=== PATIENT | male | born 1955 | race American Indian/Alaskan Native ===

== ENCOUNTER 2016-10-22 11:04 | Inpatient (IN) | payer MEDICAID ==
[2016-10-22] MEDS ORDERED: ATIVAN PO ONE (11:55)
[2016-10-22] MEDS ORDERED: ATIVAN ONE ×2 (12:01→22:24)
[2016-10-22 12:42] LABS: Basophils % (Auto) 0.8 % (0.0-1.8); Eosinophils % (Auto) 0.7 % (0.0-4.3); Hematocrit 52.3 % (35.5-45.6); Hemoglobin 17.2 gm/dl (11.8-15.2); Mean Corpuscular HGB Conc 33 % (32-34); Mean Corpuscular Hemoglobin 29 pg (28-32); Mean Corpuscular Volume 89 fl (84-94); Platelet Count 228 K/mm3 (140-440); Red Cell Distribution Width 13.7 % (13.2-15.2); White Blood Count 9.7 K/mm3 (4.5-11.0)
[2016-10-22 12:55] LABS: Anion Gap 21 mmol/L; Blood Urea Nitrogen 9 mg/dL (9-20); Calcium 9.4 mg/dL (8.4-10.2); Carbon Dioxide 22 mmol/L (22-30); Chloride 100.6 mmol/L (98-107); Glucose 105 mg/dL (75-100); Potassium 4.6 mmol/L (3.6-5.0); Sodium 139 mmol/L (137-145)
[2016-10-22] MEDS ORDERED: ATIVAN IV ONE (13:13)
[2016-10-22] MEDS ORDERED: ZOFRAN IV ONE (13:13)
[2016-10-22] MEDS ORDERED: MAGNESIUM SULFATE 2GM/50ML 2 GM/50 ML BAG IV ONE (13:30)
[2016-10-22 13:41] LABS: INR 1.01 (0.87-1.13); Partial Thromboplastin Time 30.3 Sec. (24.2-36.6)
--- NOTE | 2016-10-22 13:43 | XRay Report ---
AP CHEST: HISTORY: Hypertension AP view of the chest demonstrates a normal mediastinal and cardiac contour with clear lungs and normal bony and soft tissue structures. IMPRESSION: Unremarkable AP chest.
[2016-10-22 13:50] LABS: Creatine Kinase MB 11.6 ng/mL (0.0-4.0)
[2016-10-22 13:51] LABS: Creatine Kinase 103 units/L (55-170)
--- NOTE | 2016-10-22 15:51 | Emergency Department Report ---
ED General Adult HPI - General Chief complaint: Psych Stated complaint: SEIZURE Time Seen by Provider: 10/22/16 12:52 Source: patient Mode of arrival: Wheelchair Limitations: No Limitations - History of Present Illness Initial comments: The patient states that the principal reason that he presented was a seizure this am. He states that he mildly scuffled his knees but suffered no other injury. They also stated that he was suicidal at triage. The patient did not speak to me much about his suicidal ideation but apparently did have a lot of thoughts recently. He also expressed them to Dr. Lassiter as well. Patient tells me he was just released from the Psychiatric unit. He states he is dependent on Ativan taking at least 4 tablets a day. When he was released from the hospital a day and a half ago he no longer had any Ativan. He presents to the emergency department quite anxious and tachycardic with apparent benzo diazepam withdrawal seizure and syndrome. In addition, the patient complains of a " cramp in his anterior chest and back". He has a history of previous heart attack. He states that he does not take Plavix or aspirin. He takes a statin only. He hasn't seen a finishing tunnel operator in several years. -: Sudden Location: chest, back Radiation: non-radiation Quality: other Consistency: intermittent Improves with: none Worsens with: none Associated Symptoms: denies other symptoms Treatments Prior to Arrival: none - Related Data Allergies Allergy/AdvReac Type Severity Reaction Status Date / Time iodine Allergy Itching Verified 10/22/16 11:25 Shellfish Allergy Swelling Uncoded 10/22/16 11:25 ED Review of Systems ROS: Stated complaint: SEIZURE Other details as noted in HPI Constitutional: denies: chills, fever Eyes: denies: eye pain, eye discharge, vision change ENT: denies: ear pain, throat pain Respiratory: denies: cough, shortness of breath, wheezing Cardiovascular: chest pain. denies: palpitations Endocrine: no symptoms reported Gastrointestinal: denies: abdominal pain, nausea, diarrhea Genitourinary: denies: urgency, dysuria Musculoskeletal: denies: back pain, joint swelling, arthralgia Skin: denies: rash, lesions Neurological: denies: headache, weakness, paresthesias Psychiatric: depression, suicidal thoughts. denies: anxiety Hematological/Lymphatic: denies: easy bleeding, easy bruising ED Past Medical Hx - Past Medical History Previous Medical History?: Yes Hx Heart Attack/AMI: Yes Hx Psychiatric Treatment: Yes - Social History Substance Use Type: Prescribed (minutes previous opiate dependency and current benzodiazepine dependency) ED Physical Exam - General Limitations: No Limitations General appearance: alert, anxious - Head Head exam: Present: atraumatic, normocephalic - Eye Eye exam: Present: normal appearance. Absent: scleral icterus - ENT ENT exam: Present: normal exam, mucous membranes moist - Neck Neck exam: Present: normal inspection. Absent: tenderness, meningismus - Respiratory Respiratory exam: Present: normal lung sounds bilaterally. Absent: respiratory distress - Cardiovascular Cardiovascular Exam: Present: regular rate, normal rhythm. Absent: systolic murmur, diastolic murmur, rubs, gallop - GI/Abdominal GI/Abdominal exam: Present: soft, normal bowel sounds. Absent: distended, tenderness, guarding, rebound, rigid, organomegaly, mass - Rectal Rectal exam: Present: deferred - Extremities Exam Extremities exam: Present: normal inspection - Back Exam Back exam: Present: normal inspection - Neurological Exam Neurological exam: Present: alert, oriented X3, CN II-XII intact. Absent: motor sensory deficit - Psychiatric Psychiatric exam: Present: normal affect, normal mood - Skin Skin exam: Present: warm, dry, intact, other (erythema and superficial abrasion of the knees). Absent: rash ED Course Vital Signs 10/22/16 11:25 Temperature 97.4 F L Pulse Rate 109 H Respiratory 20 Rate Blood Pressure 128/93 O2 Sat by Pulse 99 Oximetry - Reevaluation(s) Reevaluation #1: The patient was given Ativan and his tachycardia resolved. His severe anxiety resolved. He was given a small dose of morphine for his chest pain. He was given aspirin. He was admitted by Dr. Lassiter to the hospitalist service. I am entering a cardiology consultation for chest pain and history of coronary artery disease with a quite abnormal EKG. I do not believe that he is having any active ischemia at this time however. In addition a 1013 form was executed. 10/22/16 15:57 ED Medical Decision Making - Lab Data Result diagrams: 10/22/16 12:27 10/22/16 12:27 Laboratory Results - last 24 hr 10/22/16 10/22/16 10/22/16 12:27 12:27 12:27 WBC 9.7 RBC 5.90 H Hgb 17.2 H Hct 52.3 H MCV 89 MCH 29 MCHC 33 RDW 13.7 Plt Count 228 Lymph % (Auto) 23.0 [place] % (Auto) 7.9 H Eos % (Auto) 0.7 Baso % (Auto) 0.8 Lymph # 2.2 [place] # 0.8 Eos # 0.1 Baso # 0.1 Seg Neutrophils % 67.6 Seg Neutrophils # 6.5 PT INR APTT Sodium 139 Potassium 4.6 Chloride 100.6 Carbon Dioxide 22 Anion Gap 21 BUN 9 Creatinine 0.9 Estimated GFR > 60 BUN/Creatinine Ratio 10.00 Glucose 105 H Calcium 9.4 Total Creatine Kinase CK-MB (CK-2) CK-MB (CK-2) Rel Index Troponin T < 0.010 NT-Pro-B Natriuret Pep TSH Free T4 Plasma/Serum Alcohol < 0.01 10/22/16 10/22/16 10/22/16 13:00 13:00 13:00 WBC RBC Hgb Hct MCV MCH MCHC RDW Plt Count Lymph % (Auto) [place] % (Auto) Eos % (Auto) Baso % (Auto) Lymph # [place] # Eos # Baso # Seg Neutrophils % Seg Neutrophils # PT 13.2 INR 1.01 APTT 30.3 Sodium Potassium Chloride Carbon Dioxide Anion Gap BUN Creatinine Estimated GFR BUN/Creatinine Ratio Glucose Calcium Total Creatine Kinase 103 CK-MB (CK-2) 11.6 H CK-MB (CK-2) Rel Index 11.2 H Troponin T < 0.010 NT-Pro-B Natriuret Pep 2837 H TSH 0.792 Free T4 1.09 Plasma/Serum Alcohol - EKG Data -: EKG Interpreted by Me EKG shows normal: sinus rhythm Rate: tachycardia - EKG Data Interpretation: other (old inferior wall HI. Diffuse T-wave inversions consistent with ischemia) - Radiology Data interpreted by me: X-ray shows no acute process. Critical care attestation.: If time is entered above; I have spent that time in minutes in the direct care of this critically ill patient, excluding procedure time. ED Disposition Clinical Impression: Abnormal EKG, Suicidal thoughts, Psychiatric illness Benzodiazepine withdrawal Qualifiers: Complication of substance-induced condition: with unspecified complication Qualified Code(s): F13.239 - Sedative, hypnotic or anxiolytic dependence with withdrawal, unspecified Drug withdrawal seizure Qualifiers: Complication of substance-induced condition: uncomplicated Qualified Code(s): F19.230 - Other psychoactive substance dependence with withdrawal, uncomplicated Chest pain Qualifiers: Chest pain type: unspecified Qualified Code(s): R07.9 - Chest pain, unspecified Disposition: OP ADMITTED IP TO THIS HOSP Is pt being admited?: Yes Does the pt Need Aspirin: Yes Condition: Stable Instructions: Chest Pain (ED) Referrals: PRIMARY CARE,MD [Primary Care Provider] - 3-5 Days Time of Disposition: 16:01
[2016-10-22] MEDS ORDERED: BABY ASPIRIN PO ONE (16:01)
--- NOTE | 2016-10-22 16:32 | Consultation ---
History of Present Illness Consult date: 10/22/16 Requesting physician: MINGO MEJIA Consult reason: chest pain History of present illness: The patient is a 61 year old male with a history of OK (2013), hypertension, hyperlipidemia, anxiety, depression who presented following a seizure at home this morning. He states that he is withdrawing from Ativan and is also reporting suicidal ideations. He also reports several episodes of chest pain this morning that he describes as a "cramp." He states the pain lasts for several seconds and resolves on it own. No shortness of breath, palpitations, nausea, vomiting or diaphoresis. No exacerbating or relieving factors. Currently he is chest pain free. Troponin negative. BNP 2837. He states that he had an OK in 2013 and was treated at [facility]. He reports a cardiac cath but does not think he has any stents. Past History Past Medical History: acute OK, hypertension, hyperlipidemia, other (anxiety, depression ) Past Surgical History: total hip replacement Social history: smoking (smokes 15 cigarettes/day), prescription drug abuse ( benzos). denies: alcohol abuse Family history: CAD (father had an OK at age 49) Medications and Allergies Allergies Allergy/AdvReac Type Severity Reaction Status Date / Time iodine Allergy Itching Verified 10/22/16 11:25 Shellfish Allergy Swelling Uncoded 10/22/16 11:25 Review of Systems Constitutional: no fever, no chills Ears, nose, mouth and throat: no nasal congestion, no nasal discharge, no sinus pressure Cardiovascular: chest pain, no palpitations, no shortness of breath, no dyspnea on exertion Respiratory: no cough, no congestion, no wheezing Gastrointestinal: no abdominal pain, no nausea, no vomiting, no diarrhea Genitourinary Male: no dysuria, no hematuria Musculoskeletal: no neck stiffness, no neck pain, no myalgias Integumentary: no rash, no pruritis Neurological: seizures, no parathesias, no numbness, no tingling, no headaches Psychiatric: anxiety, suicidal ideation, depression Endocrine: no cold intolerance, no heat intolerance Hematologic/Lymphatic: no easy bruising, no easy bleeding Allergic/Immunologic: no urticaria, no wheezing Physical Examination Vital Signs Temp Pulse Resp BP Pulse Ox 97.4 F L 109 H 20 128/93 99 10/22/16 11:25 10/22/16 11:25 10/22/16 11:25 10/22/16 11:25 10/22/16 11:25 General appearance: no acute distress HEENT: Positive: Normocephaly, Mucus Membranes Moist Neck: Positive: neck supple, trachea midline Cardiac: Positive: Reg Rate and Rhythm, S1/S2 Lungs: Positive: clear to auscultation Neuro: Positive: Grossly Intact Abdomen: Positive: Soft, Active Bowel Sounds. Negative: Tender Skin: Positive: Clear. Negative: Rash Extremities: Present: normal. Absent: edema Results 10/22/16 12:27 10/22/16 12:27 Cardiac Enzymes 10/22/16 Range/Units 13:00 CK-MB (CK-2) 11.6 H (0.0-4.0) ng/mL Coagulation 10/22/16 Range/Units 13:00 PT 13.2 (12.2-14.9) Sec. INR 1.01 (0.87-1.13) APTT 30.3 (24.2-36.6) Sec. CBC 10/22/16 Range/Units 12:27 WBC 9.7 (4.5-11.0) K/mm3 RBC 5.90 H (3.65-5.03) M/mm3 Hgb 17.2 H (11.8-15.2) gm/dl Hct 52.3 H (35.5-45.6) % Plt Count 228 (140-440) K/mm3 Lymph # 2.2 (1.2-5.4) K/mm3 [place] # 0.8 (0.0-0.8) K/mm3 Eos # 0.1 (0.0-0.4) K/mm3 Baso # 0.1 (0.0-0.1) K/mm3 Comprehensive Metabolic Panel 10/22/16 Range/Units 12:27 Sodium 139 (137-145) mmol/L Potassium 4.6 (3.6-5.0) mmol/L Chloride 100.6 (98-107) mmol/L Carbon Dioxide 22 (22-30) mmol/L BUN 9 (9-20) mg/dL Creatinine 0.9 (0.8-1.5) mg/dL Glucose 105 H (75-100) mg/dL Calcium 9.4 (8.4-10.2) mg/dL - Imaging and Cardiology Echo: pending EKG: image reviewed EKG interpretations - Telemetry EKG Rhythm: Sinus Rhythm - EKG Sinus rhythms and dysrhythmias: sinus rhythm Chamber hypertrophy or enlargement: left ventricular hypertro Repolarization changes or abnormalities: ST or T wave suggestive of ischemia Assessment and Plan Atypical chest pain-->resolved 1st troponin negative, will trend obtain echo Lexiscan thallium stress test in am Benzo withdrawal Hx. of OK pt. reports OK/cardiac cath in 2013 at [facility]-->awaiting records Hypertension Hyperlipidemia Tobacco abuse Will obtain additional sets of cardiac enzymes. Obtain echo. Stress test in am. Await records from [facility]. The patient has been seen in conjunction with Dr. Gómez who agrees with the assessment and plan of care. Thank you Dr. Mejia for allowing us to participate in the cared of this patient.
--- NOTE | 2016-10-22 16:58 | Admit Criteria Form ---
Admission Criteria Documentation: ALCOHOL AND PSYCHOACTIVE SUBSTANCE WITHDRAWAL Clinical Indications for Inpatient Care (Place ' X' for any and all applicable criteria): Ongoing inpatient care may be indicated for substance withdrawal[B][C] with ANY ONE of the following(1)(2)(3)(4)(21): [ ]I. Delirium due to alcohol or sedative[D] withdrawal is present. [ ]II. Marked signs of withdrawal are present as indicated by ANY ONE of the following(15)(22)(23) [ ]a) Heart rate greater than 120 beats per minute is present. [ ]b) Severe vomiting is present (eg, precludes maintenance of oral hydration). [ ]c) Grossly visible tremor is present. [ ]d) Profuse perspiration is present. [ ]e) Temperature greater than 101 degrees F (38.3 degrees C) is present. [ ]f) Other signs of severe withdrawal are present (eg, Altered mental status ) [ ]g) Severe withdrawal identified by standardized assessment score[A] [X]III. Signs of withdrawal that require continued inpatient treatment as indicated by ANY ONE of the following(15)(22)(23): [ ]a) Inadequate response to pharmacotherapy (eg, benzodiazepines) [X]b) Outpatient or lower level of care is not feasible or appropriate (eg, unavailable or inappropriate to patient condition or treatment history). [X]IV. Withdrawal signs with high-risk indicator are present as manifested by ALL of the following[A](15)(22)(23) [X]a) Signs of withdrawal are present as indicated by ANY ONE of the following: [X]i. Tachycardia is present. [ ]ii. Nausea or vomiting is present. [ ]iii. Tremor is present. [ ]iv. Increased perspiration is present. [ ]v. Other signs of withdrawal are present. [ ]vi. Withdrawal identified by standardized assessment score [A] [X]b) Elevated risk due to historical or comorbid factor is present as indicated by ANY ONE of the following: [ ]i. History of delirium due to withdrawal is present. [X]ii. History of seizures due to withdrawal is present.[E] [ ]iii. Intrinsic seizure disorder (epilepsy) is present. [ ]iv. Patient is . [ ]v. Other significant medical history (eg, severe cardiac disease) is present, which is assessed to be at risk for destabilization due to withdrawal. [ ]V. Serious electrolyte abnormalities (eg, hyponatremia, hypokalemia, hypophosphatemia) requiring correction performable only in inpatient setting(6)(25) [ ]. Severe hypoglycemia requiring glucose infusions performable only in inpatient setting(6) [ ]VII. Drug toxicity or instability, such as Altered mental status, respiratory depression, or arrhythmias, that requires inpatient care [X]VIII. Danger judged unmanageable at lower level of care because of ANY ONE of the following [X]a) Danger to self [ ]b) Danger to others [ ]c) Grave disability (eg, inability to perform self-care necessary at lower level of care) The original [facility] Care Guidelines content created by [facility] has been revised. The portions of the content which have been revised are identified through the use of italic text or in bold. [facility] Guidelines has neither reviewed nor approved the modified material. All other unmodified content is copyright [facility] Care Guidelines. Please see references footnoted in the original [facility] CareGuidelines edition 2016 Admission Criteria Met: Yes
--- NOTE | 2016-10-22 17:26 | Cat Scan Report ---
FINAL REPORT EXAM: CT HEAD/BRAIN WO CON HISTORY: seizure TECHNIQUE: Noncontrast serial axial images from skull base to vertex. PRIORS: None. FINDINGS: There is mild atrophy. There is no mass effect or midline shift. There are no abnormal intra or extra-axial fluid collections. Lateral ventricles are within normal limits for size and configuration. Basilar cisterns are patent. No acute intracranial hemorrhage is identified. Visualized paranasal sinuses and mastoid air cells are well aerated. No acute osseous abnormality is identified. IMPRESSION: 1. No abnormal mass or acute intracranial hemorrhage is identified.
--- NOTE | 2016-10-22 20:39 | History and Physical Report ---
History of Present Illness Date of examination: 10/22/16 Date of admission: 10/22/16 Past History Past Medical History: acute AR, hypertension, hyperlipidemia, other (anxiety, depression ) Past Surgical History: total hip replacement Social history: smoking (smokes 15 cigarettes/day), prescription drug abuse ( benzos). denies: alcohol abuse Family history: CAD (father had an AR at age 49) Medications and Allergies Allergies Allergy/AdvReac Type Severity Reaction Status Date / Time iodine Allergy Itching Verified 10/22/16 11:25 Shellfish Allergy Swelling Uncoded 10/22/16 11:25 Review of Systems All systems: negative Exam - Constitutional Vitals: Temp Pulse Resp BP Pulse Ox 97.4 F L 109 H 20 128/93 99 10/22/16 11:25 10/22/16 11:25 10/22/16 11:25 10/22/16 11:25 10/22/16 11:25 General appearance: Present: no acute distress, well-nourished - EENT Eyes: Present: PERRL ENT: hearing intact, clear oral mucosa - Neck Neck: Present: supple, normal ROM - Respiratory Respiratory effort: normal Respiratory: bilateral: CTA - Cardiovascular Heart Sounds: Present: S1 & S2. Absent: rub, click - Extremities Extremities: pulses symmetrical, No edema Peripheral Pulses: within normal limits - Abdominal General gastrointestinal: Present: soft, non-tender, non-distended, normal bowel sounds Male genitourinary: Present: normal - Integumentary Integumentary: Present: clear, warm, dry - Musculoskeletal Musculoskeletal: gait normal, strength equal bilaterally - Psychiatric Psychiatric: appropriate mood/affect, intact judgment & insight - Neurologic Neurologic: CNII-XII intact, moves all extremities Results - Labs CBC & Chem 7: 10/22/16 12:27 10/22/16 12:27 Labs: Abnormal lab results 10/22/16 10/22/16 10/22/16 Range/Units 12:27 12:27 13:00 RBC 5.90 H (3.65-5.03) M/mm3 Hgb 17.2 H (11.8-15.2) gm/dl Hct 52.3 H (35.5-45.6) % [place] % (Auto) 7.9 H (0.0-7.3) % Glucose 105 H (75-100) mg/dL CK-MB (CK-2) 11.6 H (0.0-4.0) ng/mL CK-MB (CK-2) Rel Index 11.2 H (0-4) NT-Pro-B Natriuret Pep 2837 H (0-900) pg/mL
[2016-10-22] MEDS ORDERED: MILK OF MAGNESIA PO PRN (20:41)
[2016-10-22] MEDS ORDERED: ZOFRAN IV PRN (20:41)
[2016-10-22] MEDS ORDERED: DULCOLAX PR PRN (20:41)
[2016-10-22] MEDS ORDERED: ATIVAN IV PRN (20:47)
[2016-10-22] MEDS ORDERED: HALDOL IV PRN (20:47)
[2016-10-22 21:00] LABS: Urine Drugs of Abuse Note Disclamer
[2016-10-22 21:06] LABS: Bilirubin,Urine NEG (Negative); Blood,Urine NEG (Negative); Ketones,Urine NEG (Negative); Leukocyte Esterase,Urine NEG (Negative); Mucus,Urine 2+ /HPF; Nitrite,Urine NEG (Negative); Urobilinogen,Urine < 2.0 mg/dL (<2.0)
[2016-10-22 22:16] LABS: Albumin 4.6 g/dL (3.9-5); Magnesium 2.9 mg/dL (1.7-2.3); Phosphorous 3.4 mg/dL (2.5-4.5)
[2016-10-22] MEDS: ATIVAN IV PRN (22:24)
[2016-10-22] MEDS ORDERED: TORADOL ONE (22:25)
[2016-10-22] MEDS ORDERED: BABY ASPIRIN ONE (22:25)
[2016-10-22] MEDS ORDERED: D5/0.45NS 1,000 ML IV ONE (22:28)
[2016-10-22] MEDS: TORADOL IV SCH (22:50)
[2016-10-22] MEDS: D5/0.45NS 1,000 ML IV SCH (23:08)
[2016-10-23] MEDS: TORADOL IV SCH ×3 (00:30→11:00)
[2016-10-23] MEDS: ATIVAN PO PRN ×5 (05:38→21:58)
[2016-10-23 05:48] LABS: Basophils % (Auto) 1.1 % (0.0-1.8); Eosinophils % (Auto) 3.3 % (0.0-4.3); Hematocrit 45.4 % (35.5-45.6); Hemoglobin 14.7 gm/dl (11.8-15.2); Mean Corpuscular HGB Conc 32 % (32-34); Mean Corpuscular Hemoglobin 29 pg (28-32); Mean Corpuscular Volume 89 fl (84-94); Platelet Count 155 K/mm3 (140-440); Red Cell Distribution Width 13.9 % (13.2-15.2); White Blood Count 6.5 K/mm3 (4.5-11.0)
[2016-10-23 06:08] LABS: Alanine Aminotransferase 27 units/L (7-56); Albumin 3.6 g/dL (3.9-5); Albumin/Globulin Ratio 1.4 %; Alkaline Phosphatase 105 units/L (35-129); Anion Gap 16 mmol/L; BUN/Creatinine Ratio 17.27; Bilirubin,Total 0.2 mg/dL (0.1-1.2); Blood Urea Nitrogen 19 mg/dL (9-20); Calcium 8.8 mg/dL (8.4-10.2); Carbon Dioxide 28 mmol/L (22-30); Chloride 102.9 mmol/L (98-107); Glucose 88 mg/dL (75-100); Potassium 5.2 mmol/L (3.6-5.0); Sodium 142 mmol/L (137-145); Total Protein 6.1 g/dL (6.3-8.2)
[2016-10-23] MEDS ORDERED: LEXISCAN IV ONE ×2 (07:59→08:14)
--- NOTE | 2016-10-23 10:37 | Progress Note ---
Assessment and Plan Atypical chest pain-->resolved trop neg x 2 stress thallium this am--> tds, but no sig ischemia or infract, low normal lv fxn Benzo withdrawal Hx. of IN pt. reports IN/cardiac cath in 2013 at [facility]-->awaiting records Hypertension Hyperlipidemia Tobacco abuse stable cv status, asx echo staff not available today (may be done as outpt) cont asa consider statin tx upon dc Subjective Date of service: 10/23/16 Interval history: no complaints no cp/sob/palp/dizziness Objective Vital Signs Temp Pulse Pulse Resp BP BP BP 10/23/16 09:40 81 106/63 10/23/16 09:22 71 105/65 10/23/16 05:50 98.5 F 73 20 90/57 10/23/16 01:31 97.5 F L 66 20 99/58 10/23/16 00:00 75 10/22/16 23:55 98.9 F 81 14 104/62 10/22/16 23:20 18 10/22/16 22:50 18 Pulse Ox 10/23/16 09:40 10/23/16 09:22 10/23/16 05:50 97 10/23/16 01:31 97 10/23/16 00:00 10/22/16 23:55 96 10/22/16 23:20 10/22/16 22:50 - Physical Examination HEENT: Positive: Normocephaly, Mucus Membranes Moist Neck: Positive: neck supple, trachea midline Neuro: Positive: Grossly Intact Abdomen: Positive: Soft, Active Bowel Sounds. Negative: Tender Skin: Positive: Clear. Negative: Rash Extremities: Present: normal. Absent: edema - Labs and Meds Cardiac Enzymes 10/23/16 Range/Units 04:52 AST 24 (5-40) units/L CBC 10/23/16 Range/Units 04:52 WBC 6.5 (4.5-11.0) K/mm3 RBC 5.10 H (3.65-5.03) M/mm3 Hgb 14.7 (11.8-15.2) gm/dl Hct 45.4 D (35.5-45.6) % Plt Count 155 (140-440) K/mm3 Lymph # 2.2 (1.2-5.4) K/mm3 [place] # 0.7 (0.0-0.8) K/mm3 Eos # 0.2 (0.0-0.4) K/mm3 Baso # 0.1 (0.0-0.1) K/mm3 Comprehensive Metabolic Panel 10/22/16 10/23/16 Range/Units 21:17 04:52 Sodium 142 (137-145) mmol/L Potassium 5.2 H (3.6-5.0) mmol/L Chloride 102.9 (98-107) mmol/L Carbon Dioxide 28 (22-30) mmol/L BUN 19 (9-20) mg/dL Creatinine 1.1 (0.8-1.5) mg/dL Glucose 88 (75-100) mg/dL Calcium 8.8 (8.4-10.2) mg/dL AST 24 (5-40) units/L ALT 27 (7-56) units/L Alkaline Phosphatase 105 (35-129) units/L Total Protein 6.1 L (6.3-8.2) g/dL Albumin 4.6 3.6 L (3.9-5) g/dL - Imaging and Cardiology EKG: image reviewed Echo: pending - EKG Sinus rhythms and dysrhythmias: sinus rhythm Chamber hypertrophy or enlargement: left ventricular hypertro Repolarization changes or abnormalities: ST or T wave suggestive of ischemia
[2016-10-23] MEDS: LOVENOX SUB-Q SCH (10:57)
--- NOTE | 2016-10-23 11:09 | Treadmill Report ---
NUCLEAR PERFUSION SCAN REFERRING PHYSICIAN: Hospitalist service. PROTOCOL: The patient was brought to the stress lab in a postabsorptive state, given 10 mCi of technetium 99m. Shortly thereafter, the patient underwent rest imaging. The patient underwent Lexiscan stress test per standard protocol. At peak stress, the patient was given 26 mCi of technetium 99m. Shortly thereafter, the patient underwent stress imaging. Raw imaging reveals mild GI artifact. No significant motion artifact. SPECT imaging examined carefully in the horizontal long axis, vertical long axis, and short axis views. There is normal homogenous uptake of radioisotope in all reported segments. No evidence of significant fixed or reversible perfusion defects suggestive of prior infarction or ischemia. Gated wall motion reveals low normal systolic performance, calculated ejection fraction of 50%. No TID. CONCLUSIONS: 1. Normal myocardial perfusion scan without evidence of active ischemia or prior infarction. 2. Low normal left ventricular systolic performance with an estimated ejection fraction of 50%. No transient ischemic dilatation or segmental wall motion abnormalities. 3. Lexiscan reported separately. JOB# [id number] PORSHA/SOM
--- NOTE | 2016-10-23 11:47 | Progress Note ---
Assessment and Plan Assessment and plan: Atypical chest pain. Resolved. Stress thallium was found to be negative. Echocardiogram pending. Cardiology following. Benzo withdrawal. Continue withdrawal precautions. Withdrawal seizure. Seizure precautions. Suicidal ideation. Psychiatry consultation. Hx. of DC. Pt. reports DC/cardiac cath in 2013 at [facility]-->awaiting records Hypertension. Continue antihypertensive medications. Hyperlipidemia. Continue statins. Tobacco abuse. Patient will be counseled on tobacco cessation. History Interval history: 61-year-old male with history of DC in 2013, hypertension, hyperlipidemia, anxiety and depression presented to the emergency department following a seizure at that occurred yesterday morning. Patient reportedly is withdrawing from Ativan and also having suicidal ideations. Hospitalist Physical - Constitutional Vitals: Temp Pulse Resp BP Pulse Ox 97.6 F 74 18 107/68 98 10/23/16 10:45 10/23/16 10:45 10/23/16 11:27 10/23/16 10:45 10/23/16 10:45 General appearance: Present: no acute distress, well-nourished - EENT Eyes: Present: PERRL, EOM intact ENT: hearing intact, clear oral mucosa, dentition normal - Neck Neck: Present: supple, normal ROM - Respiratory Respiratory effort: normal Respiratory: bilateral: CTA - Cardiovascular Rhythm: regular Heart Sounds: Present: S1 & S2. Absent: gallop, rub - Extremities Extremities: no ischemia, No edema, Full ROM - Abdominal General gastrointestinal: soft, non-tender, non-distended, normal bowel sounds - Integumentary Integumentary: Present: clear, warm, dry - Neurologic Neurologic: CNII-XII intact, moves all extremities Results - Labs CBC & Chem 7: 10/23/16 04:52 10/23/16 04:52 Labs: Laboratory Last Values WBC 6.5 K/mm3 (4.5-11.0) 10/23/16 04:52 RBC 5.10 M/mm3 (3.65-5.03) H 10/23/16 04:52 Hgb 14.7 gm/dl (11.8-15.2) 10/23/16 04:52 Hct 45.4 % (35.5-45.6) D 10/23/16 04:52 MCV 89 fl (84-94) 10/23/16 04:52 MCH 29 pg (28-32) 10/23/16 04:52 MCHC 32 % (32-34) 10/23/16 04:52 RDW 13.9 % (13.2-15.2) 10/23/16 04:52 Plt Count 155 K/mm3 (140-440) 10/23/16 04:52 Lymph % (Auto) 33.6 % (13.4-35.0) 10/23/16 04:52 [place] % (Auto) 11.4 % (0.0-7.3) H 10/23/16 04:52 Eos % (Auto) 3.3 % (0.0-4.3) 10/23/16 04:52 Baso % (Auto) 1.1 % (0.0-1.8) 10/23/16 04:52 Lymph # 2.2 K/mm3 (1.2-5.4) 10/23/16 04:52 [place] # 0.7 K/mm3 (0.0-0.8) 10/23/16 04:52 Eos # 0.2 K/mm3 (0.0-0.4) 10/23/16 04:52 Baso # 0.1 K/mm3 (0.0-0.1) 10/23/16 04:52 Seg Neutrophils % 50.6 % (40.0-70.0) 10/23/16 04:52 Seg Neutrophils # 3.3 K/mm3 (1.8-7.7) 10/23/16 04:52 PT 13.2 Sec. (12.2-14.9) 10/22/16 13:00 INR 1.01 (0.87-1.13) 10/22/16 13:00 APTT 30.3 Sec. (24.2-36.6) 10/22/16 13:00 Sodium 142 mmol/L (137-145) 10/23/16 04:52 Potassium 5.2 mmol/L (3.6-5.0) H 10/23/16 04:52 Chloride 102.9 mmol/L (98-107) 10/23/16 04:52 Carbon Dioxide 28 mmol/L (22-30) 10/23/16 04:52 Anion Gap 16 mmol/L 10/23/16 04:52 BUN 19 mg/dL (9-20) 10/23/16 04:52 Creatinine 1.1 mg/dL (0.8-1.5) 10/23/16 04:52 Estimated GFR > 60 ml/min 10/23/16 04:52 BUN/Creatinine Ratio 17.27 % 10/23/16 04:52 Glucose 88 mg/dL (75-100) 10/23/16 04:52 Calcium 8.8 mg/dL (8.4-10.2) 10/23/16 04:52 Phosphorus 3.4 mg/dL (2.5-4.5) 10/22/16 21:17 Magnesium 2.9 mg/dL (1.7-2.3) H 10/22/16 21:17 Total Bilirubin 0.2 mg/dL (0.1-1.2) 10/23/16 04:52 AST 24 units/L (5-40) 10/23/16 04:52 ALT 27 units/L (7-56) 10/23/16 04:52 Alkaline Phosphatase 105 units/L (35-129) 10/23/16 04:52 Ammonia 45.0 umol/L (25-60) 10/22/16 21:17 Total Creatine Kinase 103 units/L (55-170) 10/22/16 13:00 CK-MB (CK-2) 11.6 ng/mL (0.0-4.0) H 10/22/16 13:00 CK-MB (CK-2) Rel Index 11.2 (0-4) H 10/22/16 13:00 Troponin T < 0.010 ng/mL (0.00-0.029) 10/22/16 18:09 NT-Pro-B Natriuret Pep 2837 pg/mL (0-900) H 10/22/16 13:00 Total Protein 6.1 g/dL (6.3-8.2) L 10/23/16 04:52 Albumin 3.6 g/dL (3.9-5) L 10/23/16 04:52 Albumin/Globulin Ratio 1.4 % 10/23/16 04:52 Amylase 111 units/L (27-131) 10/22/16 21:17 TSH 0.792 mlU/mL (0.270-4.200) 10/22/16 13:00 Free T4 1.09 ng/dL (0.76-1.46) 10/22/16 13:00 Urine Color Yellow (Yellow) 10/22/16 Unknown Urine Turbidity Clear (Clear) 10/22/16 Unknown Urine pH 5.0 (5.0-7.0) 10/22/16 Unknown Ur Specific [place] 1.021 (1.003-1.030) 10/22/16 Unknown Urine Protein 30 mg/dl mg/dL (Negative) 10/22/16 Unknown Urine Glucose (UA) Neg mg/dL (Negative) 10/22/16 Unknown Urine Ketones Neg mg/dL (Negative) 10/22/16 Unknown Urine Blood Neg (Negative) 10/22/16 Unknown Urine Nitrite Neg (Negative) 10/22/16 Unknown Urine Bilirubin Neg (Negative) 10/22/16 Unknown Urine Urobilinogen < 2.0 mg/dL (<2.0) 10/22/16 Unknown Ur Leukocyte Esterase Neg (Negative) 10/22/16 Unknown Urine WBC (Auto) 1.0 /HPF (0.0-6.0) 10/22/16 Unknown Urine RBC (Auto) 26.0 /HPF (0.0-6.0) 10/22/16 Unknown Calcium Oxalate Crystal Few 10/22/16 Unknown Urine Mucus 2+ /HPF 10/22/16 Unknown Urine Opiates Screen Presumptive negative 10/22/16 11:30 Urine Methadone Screen Presumptive positive 10/22/16 11:30 Ur Barbiturates Screen Presumptive negative 10/22/16 11:30 Ur Phencyclidine Scrn Presumptive negative 10/22/16 11:30 Ur Amphetamines Screen Presumptive negative 10/22/16 11:30 U Benzodiazepines Scrn Presumptive negative 10/22/16 11:30 Urine Cocaine Screen Presumptive negative 10/22/16 11:30 U Marijuana (THC) Screen Presumptive negative 10/22/16 11:30 Drugs of Abuse Note Disclamer 10/22/16 11:30 Plasma/Serum Alcohol < 0.01 gm% (0-0.07) 10/22/16 12:27
[2016-10-23] MEDS: ASPIRIN PO SCH (14:50)
[2016-10-23] MEDS: TYLENOL PO PRN (15:23)
[2016-10-23] MEDS: D5/0.45NS 1,000 ML IV SCH (19:22)
[2016-10-23] MEDS: REMERON PO SCH (21:58)
[2016-10-24] MEDS: ATIVAN PO PRN ×4 (06:18→21:48)
[2016-10-24] MEDS: TYLENOL PO PRN ×2 (09:03→23:16)
[2016-10-24] MEDS: LOVENOX SUB-Q SCH (09:04)
[2016-10-24] MEDS: ASPIRIN PO SCH (09:10)
--- NOTE | 2016-10-24 11:58 | Progress Note ---
Assessment and Plan Assessment and plan: Atypical chest pain. Resolved. Stress thallium was found to be negative. Echocardiogram pending. Cardiology following. Benzo withdrawal. Continue withdrawal precautions. Withdrawal seizure. Seizure precautions. Suicidal ideation. Psychiatry consultation. Hx. of [place]. Pt. reports [place]/cardiac cath in 2013 at [facility]-->awaiting records Hypertension. Continue antihypertensive medications. Hyperlipidemia. Continue statins. Tobacco abuse. Patient will be counseled on tobacco cessation. Hyperkalemia. Kayexalate 1. History Interval history: 61-year-old male with history of [place] in 2013, hypertension, hyperlipidemia, anxiety and depression presented to the emergency department following a seizure at that occurred yesterday morning. Patient reportedly is withdrawing from Ativan and also having suicidal ideations. Hospitalist Physical - Constitutional Vitals: Temp Pulse Resp BP Pulse Ox 97.8 F 88 18 112/74 98 10/24/16 04:15 10/24/16 04:15 10/24/16 09:11 10/24/16 04:15 10/24/16 04:15 General appearance: Present: no acute distress, well-nourished - EENT Eyes: Present: PERRL, EOM intact ENT: hearing intact, clear oral mucosa, dentition normal - Neck Neck: Present: supple, normal ROM - Respiratory Respiratory effort: normal Respiratory: bilateral: CTA - Cardiovascular Rhythm: regular Heart Sounds: Present: S1 & S2. Absent: gallop, rub - Extremities Extremities: no ischemia, No edema, Full ROM - Abdominal General gastrointestinal: soft, non-tender, non-distended, normal bowel sounds - Integumentary Integumentary: Present: clear, warm, dry - Neurologic Neurologic: CNII-XII intact, moves all extremities Results - Labs CBC & Chem 7: 10/23/16 04:52 10/23/16 04:52 Labs: Laboratory Last Values WBC 6.5 K/mm3 (4.5-11.0) 10/23/16 04:52 RBC 5.10 M/mm3 (3.65-5.03) H 10/23/16 04:52 Hgb 14.7 gm/dl (11.8-15.2) 10/23/16 04:52 Hct 45.4 % (35.5-45.6) D 10/23/16 04:52 MCV 89 fl (84-94) 10/23/16 04:52 MCH 29 pg (28-32) 10/23/16 04:52 MCHC 32 % (32-34) 10/23/16 04:52 RDW 13.9 % (13.2-15.2) 10/23/16 04:52 Plt Count 155 K/mm3 (140-440) 10/23/16 04:52 Lymph % (Auto) 33.6 % (13.4-35.0) 10/23/16 04:52 [place] % (Auto) 11.4 % (0.0-7.3) H 10/23/16 04:52 Eos % (Auto) 3.3 % (0.0-4.3) 10/23/16 04:52 Baso % (Auto) 1.1 % (0.0-1.8) 10/23/16 04:52 Lymph # 2.2 K/mm3 (1.2-5.4) 10/23/16 04:52 [place] # 0.7 K/mm3 (0.0-0.8) 10/23/16 04:52 Eos # 0.2 K/mm3 (0.0-0.4) 10/23/16 04:52 Baso # 0.1 K/mm3 (0.0-0.1) 10/23/16 04:52 Seg Neutrophils % 50.6 % (40.0-70.0) 10/23/16 04:52 Seg Neutrophils # 3.3 K/mm3 (1.8-7.7) 10/23/16 04:52 PT 13.2 Sec. (12.2-14.9) 10/22/16 13:00 INR 1.01 (0.87-1.13) 10/22/16 13:00 APTT 30.3 Sec. (24.2-36.6) 10/22/16 13:00 Sodium 142 mmol/L (137-145) 10/23/16 04:52 Potassium 5.2 mmol/L (3.6-5.0) H 10/23/16 04:52 Chloride 102.9 mmol/L (98-107) 10/23/16 04:52 Carbon Dioxide 28 mmol/L (22-30) 10/23/16 04:52 Anion Gap 16 mmol/L 10/23/16 04:52 BUN 19 mg/dL (9-20) 10/23/16 04:52 Creatinine 1.1 mg/dL (0.8-1.5) 10/23/16 04:52 Estimated GFR > 60 ml/min 10/23/16 04:52 BUN/Creatinine Ratio 17.27 % 10/23/16 04:52 Glucose 88 mg/dL (75-100) 10/23/16 04:52 Calcium 8.8 mg/dL (8.4-10.2) 10/23/16 04:52 Phosphorus 3.4 mg/dL (2.5-4.5) 10/22/16 21:17 Magnesium 2.9 mg/dL (1.7-2.3) H 10/22/16 21:17 Total Bilirubin 0.2 mg/dL (0.1-1.2) 10/23/16 04:52 AST 24 units/L (5-40) 10/23/16 04:52 ALT 27 units/L (7-56) 10/23/16 04:52 Alkaline Phosphatase 105 units/L (35-129) 10/23/16 04:52 Ammonia 45.0 umol/L (25-60) 10/22/16 21:17 Total Creatine Kinase 103 units/L (55-170) 10/22/16 13:00 CK-MB (CK-2) 11.6 ng/mL (0.0-4.0) H 10/22/16 13:00 CK-MB (CK-2) Rel Index 11.2 (0-4) H 10/22/16 13:00 Troponin T < 0.010 ng/mL (0.00-0.029) 10/22/16 18:09 NT-Pro-B Natriuret Pep 2837 pg/mL (0-900) H 10/22/16 13:00 Total Protein 6.1 g/dL (6.3-8.2) L 10/23/16 04:52 Albumin 3.6 g/dL (3.9-5) L 10/23/16 04:52 Albumin/Globulin Ratio 1.4 % 10/23/16 04:52 Amylase 111 units/L (27-131) 10/22/16 21:17 TSH 0.792 mlU/mL (0.270-4.200) 10/22/16 13:00 Free T4 1.09 ng/dL (0.76-1.46) 10/22/16 13:00 Urine Color Yellow (Yellow) 10/22/16 Unknown Urine Turbidity Clear (Clear) 10/22/16 Unknown Urine pH 5.0 (5.0-7.0) 10/22/16 Unknown Ur Specific [place] 1.021 (1.003-1.030) 10/22/16 Unknown Urine Protein 30 mg/dl mg/dL (Negative) 10/22/16 Unknown Urine Glucose (UA) Neg mg/dL (Negative) 10/22/16 Unknown Urine Ketones Neg mg/dL (Negative) 10/22/16 Unknown Urine Blood Neg (Negative) 10/22/16 Unknown Urine Nitrite Neg (Negative) 10/22/16 Unknown Urine Bilirubin Neg (Negative) 10/22/16 Unknown Urine Urobilinogen < 2.0 mg/dL (<2.0) 10/22/16 Unknown Ur Leukocyte Esterase Neg (Negative) 10/22/16 Unknown Urine WBC (Auto) 1.0 /HPF (0.0-6.0) 10/22/16 Unknown Urine RBC (Auto) 26.0 /HPF (0.0-6.0) 10/22/16 Unknown Calcium Oxalate Crystal Few 10/22/16 Unknown Urine Mucus 2+ /HPF 10/22/16 Unknown Urine Opiates Screen Presumptive negative 10/22/16 11:30 Urine Methadone Screen Presumptive positive 10/22/16 11:30 Ur Barbiturates Screen Presumptive negative 10/22/16 11:30 Ur Phencyclidine Scrn Presumptive negative 10/22/16 11:30 Ur Amphetamines Screen Presumptive negative 10/22/16 11:30 U Benzodiazepines Scrn Presumptive negative 10/22/16 11:30 Urine Cocaine Screen Presumptive negative 10/22/16 11:30 U Marijuana (THC) Screen Presumptive negative 10/22/16 11:30 Drugs of Abuse Note Disclamer 10/22/16 11:30 Plasma/Serum Alcohol < 0.01 gm% (0-0.07) 10/22/16 12:27
[2016-10-24] MEDS ORDERED: PNEUMOVAX 23 IM ONE (12:00)
--- NOTE | 2016-10-24 12:03 | Discharge Summary ---
Providers - Providers Date of Admission: 10/22/16 20:41 Date of discharge: 10/24/16 Attending physician: NATE ALEXANDER 10/22/16 20:49 Consult to Mental Health [CONS] Routine Reason For Exam: Benzo dependency+ Suicidal ideation Place consult to:: Mental health Notified:: Miriam SOLOMON Phone number called:: [phone] Was contact made?: Yes If yes, spoke with:: Kristina Time called:: 09:21 Primary care physician: DESIGN ARCHITECT Hospitalization Reason for admission: SI and atypical CP Condition: Stable Hospital course: 61-year-old male with history of [place] in 2013, hypertension, hyperlipidemia, anxiety and depression presented to the emergency department following a seizure that occurred prior to admission. Patient reportedly was withdrawing from Ativan with presumably a withdrawal seizure. Pt. also having suicidal ideations and atypical chest pain. Cardiology saw the patient in consultation and perform a stress thallium that showed no significant ischemia or infarct with low normal LV function. Patient was to undergo echocardiogram staff not available and will be done as an outpatient. Recommendations are to continue aspirin and statins at discharge. Mental health assessment recommends inpatient psych facility. Dedicated discharged time 35 minutes. Disposition: DC/TX ANOTHER TYPE HEALTHCARE - Discharge Diagnoses (1) Benzodiazepine withdrawal Status: Acute Qualifiers: Complication of substance-induced condition: with unspecified complication Qualified Code(s): F13.239 - Sedative, hypnotic or anxiolytic dependence with withdrawal, unspecified (2) Chest pain Status: Acute Qualifiers: Chest pain type: unspecified Qualified Code(s): R07.9 - Chest pain, unspecified (3) Drug withdrawal seizure Status: Acute Qualifiers: Complication of substance-induced condition: uncomplicated Qualified Code(s ): F19.230 - Other psychoactive substance dependence with withdrawal, uncomplicated (4) Suicidal thoughts Status: Acute Core Measure Documentation - Palliative Care Palliative Care/ Comfort Measures: Not Applicable - Core Measures Any of the following diagnoses?: none Exam - Constitutional Vitals: Temp Pulse Resp BP Pulse Ox 97.8 F 88 18 112/74 98 10/24/16 04:15 10/24/16 04:15 10/24/16 09:11 10/24/16 04:15 10/24/16 04:15 General appearance: Present: no acute distress, well-nourished - EENT Eyes: Present: PERRL ENT: hearing intact, clear oral mucosa - Neck Neck: Present: supple, normal ROM - Respiratory Respiratory effort: normal Respiratory: bilateral: CTA - Cardiovascular Heart Sounds: Present: S1 & S2. Absent: rub, click - Extremities Extremities: pulses symmetrical, No edema Peripheral Pulses: within normal limits - Abdominal General gastrointestinal: Present: soft, non-tender, non-distended, normal bowel sounds Male genitourinary: Present: normal - Integumentary Integumentary: Present: clear, warm, dry - Musculoskeletal Musculoskeletal: gait normal, strength equal bilaterally - Psychiatric Psychiatric: appropriate mood/affect, intact judgment & insight - Neurologic Neurologic: CNII-XII intact, moves all extremities Plan Activity: advance as tolerated Weight Bearing Status: Full Weight Bearing Diet: regular Follow up with: PRIMARY CAREMD [Primary Care Provider] - 3-5 Days GRANT COTTON MD [Staff Physician] - 7 Days
[2016-10-24] MEDS ORDERED: KIONEX PO ONE (12:06)
[2016-10-24] MEDS: ATIVAN IV PRN (16:21)
[2016-10-24] MEDS: REMERON PO SCH (21:47)
[2016-10-25] MEDS: ATIVAN IV PRN ×3 (01:04→10:07)
[2016-10-25] MEDS: LOVENOX SUB-Q SCH (10:07)
[2016-10-25] MEDS: ASPIRIN PO SCH (10:07)
[2016-10-25] MEDS: ATIVAN PO PRN ×3 (13:07→21:36)
--- NOTE | 2016-10-25 13:53 | Progress Note ---
Assessment and Plan Stable cardiac status. He may be discharged from a cardiac standpoint. - Patient Problems (1) Atypical chest pain Current Visit: Yes Status: Resolved (2) Hypertension Current Visit: Yes Status: Chronic Qualifiers: Hypertension type: essential hypertension Qualified Code(s): I10 - Essential (primary) hypertension (3) Drug withdrawal seizure Current Visit: Yes Status: Acute Qualifiers: Complication of substance-induced condition: uncomplicated Qualified Code(s ): F19.230 - Other psychoactive substance dependence with withdrawal, uncomplicated Subjective Date of service: 10/25/16 Principal diagnosis: Atypical chest pain Interval history: No chest pain. Objective Vital Signs Temp Pulse Pulse Resp BP Pulse Ox 10/25/16 11:31 97.3 F L 89 20 127/76 99 10/25/16 10:00 78 10/25/16 07:25 97.6 F 82 20 142/81 99 10/25/16 05:26 97.6 F 76 20 111/63 98 10/25/16 01:12 98.0 F 100 H 20 114/68 98 10/24/16 21:52 97.5 F L 80 20 111/78 98 10/24/16 21:06 82 10/24/16 16:30 98.3 F 75 20 121/82 - Physical Examination General: No Apparent Distress HEENT: Positive: EOMI, Normocephaly, Mucus Membranes Moist Neck: Positive: neck supple, trachea midline Cardiac: Positive: Reg Rate and Rhythm, S1/S2 Lungs: Positive: clear to auscultation Neuro: Positive: Grossly Intact Abdomen: Positive: Soft, Active Bowel Sounds. Negative: Tender Skin: Positive: Clear. Negative: Rash Musculoskeletal: Normal Range of Motion Extremities: Present: normal. Absent: edema - Imaging and Cardiology EKG: image reviewed Echo: pending - Telemetry EKG Rhythm: Sinus Rhythm - EKG Sinus rhythms and dysrhythmias: sinus rhythm Chamber hypertrophy or enlargement: left ventricular hypertro Repolarization changes or abnormalities: ST or T wave suggestive of ischemia
[2016-10-25] MEDS: TYLENOL PO PRN (15:35)
--- NOTE | 2016-10-25 19:53 | Echocardiography Report ---
REASON FOR STUDY: Chest pain. INTERPRETATION: Technically limited study. The aortic root and proximal ascending aorta are not visualized. The left atrium appears normal in size. The right atrium appears normal in size. The mitral valve is not adequately visualized. However, there is trace to mild mitral regurgitation. The tricuspid valve is not adequately visualized. However, it appears to function normally. The aortic valve is not adequately visualized. The pulmonic valve is not adequately visualized. The left ventricular cavity appears normal in size with borderline normal global systolic function. Although the apex is not adequately visualized, apical wall motion abnormality cannot be excluded. The visually estimated left ventricular ejection fraction is 50%. There is grade 1 left ventricular diastolic dysfunction (impaired relaxation). Right ventricular size and systolic function appear normal. A small pericardial effusion appears to be present. However, there is no echocardiographic evidence of tamponade. SUMMARY: Technically limited study. Trace to mild mitral regurgitation. Normal left ventricular cavity size with borderline normal global systolic function, EF 50%. Grade 1 diastolic LV dysfunction. Normal right ventricular size and systolic function. Small pericardial effusion. [facility]# [id number] CHEMO/SOM ARCE
[2016-10-25] MEDS: REMERON PO SCH (21:40)
[2016-10-26] MEDS: ATIVAN PO PRN ×4 (06:55→21:30)
[2016-10-26] MEDS: LOVENOX SUB-Q SCH (09:45)
[2016-10-26] MEDS: ASPIRIN PO SCH (09:45)
--- NOTE | 2016-10-26 10:44 | Query- Chest Pain ---
Lin Charles____Dickson Date:____10/26/16 Forest Officer/CDS: Harvey Esemaday Phone#: [phone] Exercise your independent professional judgment when responding to query. Questions asked do not imply a particular answer is desired or expected. We greatly appreciate your clarification on this issue. Clinical Documentation States: 61 year old was admitted on 10/22/16. The patient was diagnosed with benzodiazepine withdrawal. The discharge diagnosis states " chest pain: unspecified " Echocardiography shows EF at 50%, and grade 1 diastolic LV dysfunction. There is normal right ventricular size and systolic function. Please document the etiology of Chest Pain: [ ] Myocardial Infarction [ ] Pneumonia [ ] Mediastinitis [ ] Costochondritis [ ] Pulmonary Embolism [ ] Coronary Artery Disease [x ] GERD [ ] Other: [ ] Comment/Explanation: [ ] Not applicable Present on Admission: [ x] Yes (Y) [ ] Clinically undeterminable (W) [ ] No(N) Please document response in your Progress Notes and/or Discharge Summary and indicate if the condition was present on admission. ISHAAND
--- NOTE | 2016-10-26 12:32 | Progress Note ---
Assessment and Plan Stable cardiac status. He may be discharged from a cardiac standpoint. Will sign off and see PRN. - Patient Problems (1) Atypical chest pain Current Visit: Yes Status: Resolved (2) Hypertension Current Visit: Yes Status: Chronic Qualifiers: Hypertension type: essential hypertension Qualified Code(s): I10 - Essential (primary) hypertension (3) Drug withdrawal seizure Current Visit: Yes Status: Acute Qualifiers: Complication of substance-induced condition: uncomplicated Qualified Code(s ): F19.230 - Other psychoactive substance dependence with withdrawal, uncomplicated Subjective Date of service: 10/26/16 Principal diagnosis: Atypical chest pain Interval history: No new complaints. Sinus rhythm on the monitor. Objective Last Vital Signs Temp 98.1 F 10/26/16 11:30 Pulse 78 10/26/16 11:30 Resp 20 10/26/16 11:30 BP 107/69 10/26/16 11:30 Pulse Ox 97 10/26/16 11:30 - Physical Examination General: No Apparent Distress HEENT: Positive: EOMI, Normocephaly, Mucus Membranes Moist Neck: Positive: neck supple, trachea midline Cardiac: Positive: Reg Rate and Rhythm, S1/S2 Lungs: Positive: clear to auscultation Neuro: Positive: Grossly Intact Abdomen: Positive: Soft, Active Bowel Sounds. Negative: Tender Skin: Positive: Clear. Negative: Rash Musculoskeletal: Normal Range of Motion Extremities: Present: normal. Absent: edema - Imaging and Cardiology EKG: image reviewed Echo: report reviewed - Telemetry EKG Rhythm: Sinus Rhythm - EKG Sinus rhythms and dysrhythmias: sinus rhythm Chamber hypertrophy or enlargement: left ventricular hypertro Repolarization changes or abnormalities: ST or T wave suggestive of ischemia
--- NOTE | 2016-10-26 16:21 | Progress Note ---
Assessment and Plan Assessment and plan: 1. Suicidal ideation/ Benzo withdrawal/ benzo dependence- awaiting placement; cont current manx 2.CAD- reports [place]/cardiac cath in 2013 at [facility]-->awaiting records; cotn asa 3. Hypertension. Continue antihypertensive medications. 4. Hyperlipidemia. Continue statins. 5. Tobacco abuse. Patient will be counseled on tobacco cessation. 6. Hyperkalemia- was treated; repeat level 7. DVT prophylaxis-lovenox for d/c when bed available; History Interval history: 1. F/u hypotension, drug withdrawal seizure; benzo dependence Patient seen on the bedside, no complaints Hospitalist Physical - Constitutional Vitals: Temp Pulse Resp BP Pulse Ox 98.1 F 79 20 107/69 97 10/26/16 11:30 10/26/16 13:38 10/26/16 11:30 10/26/16 11:30 10/26/16 11:30 General appearance: Present: no acute distress, well-nourished - EENT Eyes: Present: PERRL, EOM intact. Absent: scleral icterus, conjunctival injection ENT: hearing intact, clear oral mucosa, no oropharyngeal erythema, no poor dentition - Neck Neck: Present: supple, normal ROM - Respiratory Respiratory effort: normal Respiratory: negative: diminished, rales, rhonchi, wheezing - Cardiovascular Rhythm: regular Heart Sounds: Present: S1 & S2. Absent: gallop - Extremities Extremities: no ischemia, pulses intact, pulses symmetrical, No edema Peripheral Pulses: within normal limits - Abdominal General gastrointestinal: soft, non-tender, non-distended, normal bowel sounds - Integumentary Integumentary: Present: clear - Psychiatric Psychiatric: appropriate mood/affect, intact judgment & insight, cooperative - Neurologic Neurologic: CNII-XII intact, moves all extremities Results - Labs CBC & Chem 7: 10/23/16 04:52 10/23/16 04:52 Labs: Laboratory Last Values WBC 6.5 K/mm3 (4.5-11.0) 10/23/16 04:52 RBC 5.10 M/mm3 (3.65-5.03) H 10/23/16 04:52 Hgb 14.7 gm/dl (11.8-15.2) 10/23/16 04:52 Hct 45.4 % (35.5-45.6) D 10/23/16 04:52 MCV 89 fl (84-94) 10/23/16 04:52 MCH 29 pg (28-32) 10/23/16 04:52 MCHC 32 % (32-34) 10/23/16 04:52 RDW 13.9 % (13.2-15.2) 10/23/16 04:52 Plt Count 155 K/mm3 (140-440) 10/23/16 04:52 Lymph % (Auto) 33.6 % (13.4-35.0) 10/23/16 04:52 [place] % (Auto) 11.4 % (0.0-7.3) H 10/23/16 04:52 Eos % (Auto) 3.3 % (0.0-4.3) 10/23/16 04:52 Baso % (Auto) 1.1 % (0.0-1.8) 10/23/16 04:52 Lymph # 2.2 K/mm3 (1.2-5.4) 10/23/16 04:52 [place] # 0.7 K/mm3 (0.0-0.8) 10/23/16 04:52 Eos # 0.2 K/mm3 (0.0-0.4) 10/23/16 04:52 Baso # 0.1 K/mm3 (0.0-0.1) 10/23/16 04:52 Seg Neutrophils % 50.6 % (40.0-70.0) 10/23/16 04:52 Seg Neutrophils # 3.3 K/mm3 (1.8-7.7) 10/23/16 04:52 PT 13.2 Sec. (12.2-14.9) 10/22/16 13:00 INR 1.01 (0.87-1.13) 10/22/16 13:00 APTT 30.3 Sec. (24.2-36.6) 10/22/16 13:00 Sodium 142 mmol/L (137-145) 10/23/16 04:52 Potassium 5.2 mmol/L (3.6-5.0) H 10/23/16 04:52 Chloride 102.9 mmol/L (98-107) 10/23/16 04:52 Carbon Dioxide 28 mmol/L (22-30) 10/23/16 04:52 Anion Gap 16 mmol/L 10/23/16 04:52 BUN 19 mg/dL (9-20) 10/23/16 04:52 Creatinine 1.1 mg/dL (0.8-1.5) 10/23/16 04:52 Estimated GFR > 60 ml/min 10/23/16 04:52 BUN/Creatinine Ratio 17.27 % 10/23/16 04:52 Glucose 88 mg/dL (75-100) 10/23/16 04:52 Calcium 8.8 mg/dL (8.4-10.2) 10/23/16 04:52 Phosphorus 3.4 mg/dL (2.5-4.5) 10/22/16 21:17 Magnesium 2.9 mg/dL (1.7-2.3) H 10/22/16 21:17 Total Bilirubin 0.2 mg/dL (0.1-1.2) 10/23/16 04:52 AST 24 units/L (5-40) 10/23/16 04:52 ALT 27 units/L (7-56) 10/23/16 04:52 Alkaline Phosphatase 105 units/L (35-129) 10/23/16 04:52 Ammonia 45.0 umol/L (25-60) 10/22/16 21:17 Total Creatine Kinase 103 units/L (55-170) 10/22/16 13:00 CK-MB (CK-2) 11.6 ng/mL (0.0-4.0) H 10/22/16 13:00 CK-MB (CK-2) Rel Index 11.2 (0-4) H 10/22/16 13:00 Troponin T < 0.010 ng/mL (0.00-0.029) 10/22/16 18:09 NT-Pro-B Natriuret Pep 2837 pg/mL (0-900) H 10/22/16 13:00 Total Protein 6.1 g/dL (6.3-8.2) L 10/23/16 04:52 Albumin 3.6 g/dL (3.9-5) L 10/23/16 04:52 Albumin/Globulin Ratio 1.4 % 10/23/16 04:52 Amylase 111 units/L (27-131) 10/22/16 21:17 TSH 0.792 mlU/mL (0.270-4.200) 10/22/16 13:00 Free T4 1.09 ng/dL (0.76-1.46) 10/22/16 13:00 Urine Color Yellow (Yellow) 10/22/16 Unknown Urine Turbidity Clear (Clear) 10/22/16 Unknown Urine pH 5.0 (5.0-7.0) 10/22/16 Unknown Ur Specific [place] 1.021 (1.003-1.030) 10/22/16 Unknown Urine Protein 30 mg/dl mg/dL (Negative) 10/22/16 Unknown Urine Glucose (UA) Neg mg/dL (Negative) 10/22/16 Unknown Urine Ketones Neg mg/dL (Negative) 10/22/16 Unknown Urine Blood Neg (Negative) 10/22/16 Unknown Urine Nitrite Neg (Negative) 10/22/16 Unknown Urine Bilirubin Neg (Negative) 10/22/16 Unknown Urine Urobilinogen < 2.0 mg/dL (<2.0) 10/22/16 Unknown Ur Leukocyte Esterase Neg (Negative) 10/22/16 Unknown Urine WBC (Auto) 1.0 /HPF (0.0-6.0) 10/22/16 Unknown Urine RBC (Auto) 26.0 /HPF (0.0-6.0) 10/22/16 Unknown Calcium Oxalate Crystal Few 10/22/16 Unknown Urine Mucus 2+ /HPF 10/22/16 Unknown Urine Opiates Screen Presumptive negative 10/22/16 11:30 Urine Methadone Screen Presumptive positive 10/22/16 11:30 Ur Barbiturates Screen Presumptive negative 10/22/16 11:30 Ur Phencyclidine Scrn Presumptive negative 10/22/16 11:30 Ur Amphetamines Screen Presumptive negative 10/22/16 11:30 U Benzodiazepines Scrn Presumptive negative 10/22/16 11:30 Urine Cocaine Screen Presumptive negative 10/22/16 11:30 U Marijuana (THC) Screen Presumptive negative 10/22/16 11:30 Drugs of Abuse Note Disclamer 10/22/16 11:30 Plasma/Serum Alcohol < 0.01 gm% (0-0.07) 10/22/16 12:27
[2016-10-26] MEDS: REMERON PO SCH (22:00)
[2016-10-27] MEDS: ATIVAN IV PRN (01:00)
[2016-10-27 06:05] LABS: Anion Gap 16 mmol/L; BUN/Creatinine Ratio 16.66; Blood Urea Nitrogen 15 mg/dL (9-20); Calcium 8.4 mg/dL (8.4-10.2); Carbon Dioxide 24 mmol/L (22-30); Chloride 106.6 mmol/L (98-107); Glucose 86 mg/dL (75-100); Potassium 4.6 mmol/L (3.6-5.0); Sodium 142 mmol/L (137-145)
[2016-10-27] MEDS: LOVENOX SUB-Q SCH (09:34)
[2016-10-27] MEDS: ATIVAN PO PRN ×2 (09:34→14:16)
[2016-10-27] MEDS: ASPIRIN PO SCH (09:34)
[2016-10-27] MEDS: TYLENOL PO PRN (14:16)
--- NOTE | 2016-10-27 14:20 | Progress Note ---
Assessment and Plan Assessment and plan: 1. Suicidal ideation/ Benzo withdrawal/ benzo dependence- awaiting placement; cont current manx 2.CAD- reports [place]/cardiac cath in 2013 at [facility]-->awaiting records; cotn asa 3. Hypertension. Continue antihypertensive medications. 4. Hyperlipidemia. Continue statins. 5. Tobacco abuse. Patient will be counseled on tobacco cessation. 6. Hyperkalemia- resolved; monitor 7. DVT prophylaxis-lovenox for d/c when bed available; History Interval history: 1. F/u hypotension, drug withdrawal seizure; benzo dependence Patient seen on the bedside, no complaints Hospitalist Physical - Constitutional Vitals: Temp Pulse Resp BP Pulse Ox 98.1 F 68 18 117/71 98 10/27/16 07:45 10/27/16 07:45 10/27/16 07:45 10/27/16 07:45 10/27/16 07:45 General appearance: Present: no acute distress, well-nourished - EENT Eyes: Present: PERRL, EOM intact. Absent: scleral icterus, conjunctival injection ENT: hearing intact, clear oral mucosa, no oropharyngeal erythema, no poor dentition - Neck Neck: Present: supple, normal ROM. Absent: enlarged thyroid, masses or JVD - Respiratory Respiratory effort: normal Respiratory: negative: diminished, rales, rhonchi, wheezing - Cardiovascular Rhythm: regular Heart Sounds: Present: S1 & S2. Absent: gallop - Extremities Extremities: no ischemia, pulses intact, pulses symmetrical, No edema Peripheral Pulses: within normal limits - Abdominal General gastrointestinal: soft, non-tender, non-distended - Integumentary Integumentary: Present: clear - Psychiatric Psychiatric: appropriate mood/affect, intact judgment & insight, cooperative - Neurologic Neurologic: CNII-XII intact, moves all extremities Results - Labs CBC & Chem 7: 10/23/16 04:52 10/27/16 05:34 Labs: Laboratory Last Values WBC 6.5 K/mm3 (4.5-11.0) 10/23/16 04:52 RBC 5.10 M/mm3 (3.65-5.03) H 10/23/16 04:52 Hgb 14.7 gm/dl (11.8-15.2) 10/23/16 04:52 Hct 45.4 % (35.5-45.6) D 10/23/16 04:52 MCV 89 fl (84-94) 10/23/16 04:52 MCH 29 pg (28-32) 10/23/16 04:52 MCHC 32 % (32-34) 10/23/16 04:52 RDW 13.9 % (13.2-15.2) 10/23/16 04:52 Plt Count 155 K/mm3 (140-440) 10/23/16 04:52 Lymph % (Auto) 33.6 % (13.4-35.0) 10/23/16 04:52 [place] % (Auto) 11.4 % (0.0-7.3) H 10/23/16 04:52 Eos % (Auto) 3.3 % (0.0-4.3) 10/23/16 04:52 Baso % (Auto) 1.1 % (0.0-1.8) 10/23/16 04:52 Lymph # 2.2 K/mm3 (1.2-5.4) 10/23/16 04:52 [place] # 0.7 K/mm3 (0.0-0.8) 10/23/16 04:52 Eos # 0.2 K/mm3 (0.0-0.4) 10/23/16 04:52 Baso # 0.1 K/mm3 (0.0-0.1) 10/23/16 04:52 Seg Neutrophils % 50.6 % (40.0-70.0) 10/23/16 04:52 Seg Neutrophils # 3.3 K/mm3 (1.8-7.7) 10/23/16 04:52 PT 13.2 Sec. (12.2-14.9) 10/22/16 13:00 INR 1.01 (0.87-1.13) 10/22/16 13:00 APTT 30.3 Sec. (24.2-36.6) 10/22/16 13:00 Sodium 142 mmol/L (137-145) 10/27/16 05:34 Potassium 4.6 mmol/L (3.6-5.0) 10/27/16 05:34 Chloride 106.6 mmol/L (98-107) 10/27/16 05:34 Carbon Dioxide 24 mmol/L (22-30) 10/27/16 05:34 Anion Gap 16 mmol/L 10/27/16 05:34 BUN 15 mg/dL (9-20) 10/27/16 05:34 Creatinine 0.9 mg/dL (0.8-1.5) 10/27/16 05:34 Estimated GFR > 60 ml/min 10/27/16 05:34 BUN/Creatinine Ratio 16.66 % 10/27/16 05:34 Glucose 86 mg/dL (75-100) 10/27/16 05:34 Calcium 8.4 mg/dL (8.4-10.2) 10/27/16 05:34 Phosphorus 3.4 mg/dL (2.5-4.5) 10/22/16 21:17 Magnesium 2.9 mg/dL (1.7-2.3) H 10/22/16 21:17 Total Bilirubin 0.2 mg/dL (0.1-1.2) 10/23/16 04:52 AST 24 units/L (5-40) 10/23/16 04:52 ALT 27 units/L (7-56) 10/23/16 04:52 Alkaline Phosphatase 105 units/L (35-129) 10/23/16 04:52 Ammonia 45.0 umol/L (25-60) 10/22/16 21:17 Total Creatine Kinase 103 units/L (55-170) 10/22/16 13:00 CK-MB (CK-2) 11.6 ng/mL (0.0-4.0) H 10/22/16 13:00 CK-MB (CK-2) Rel Index 11.2 (0-4) H 10/22/16 13:00 Troponin T < 0.010 ng/mL (0.00-0.029) 10/22/16 18:09 NT-Pro-B Natriuret Pep 2837 pg/mL (0-900) H 10/22/16 13:00 Total Protein 6.1 g/dL (6.3-8.2) L 10/23/16 04:52 Albumin 3.6 g/dL (3.9-5) L 10/23/16 04:52 Albumin/Globulin Ratio 1.4 % 10/23/16 04:52 Amylase 111 units/L (27-131) 10/22/16 21:17 TSH 0.792 mlU/mL (0.270-4.200) 10/22/16 13:00 Free T4 1.09 ng/dL (0.76-1.46) 10/22/16 13:00 Urine Color Yellow (Yellow) 10/22/16 Unknown Urine Turbidity Clear (Clear) 10/22/16 Unknown Urine pH 5.0 (5.0-7.0) 10/22/16 Unknown Ur Specific [place] 1.021 (1.003-1.030) 10/22/16 Unknown Urine Protein 30 mg/dl mg/dL (Negative) 10/22/16 Unknown Urine Glucose (UA) Neg mg/dL (Negative) 10/22/16 Unknown Urine Ketones Neg mg/dL (Negative) 10/22/16 Unknown Urine Blood Neg (Negative) 10/22/16 Unknown Urine Nitrite Neg (Negative) 10/22/16 Unknown Urine Bilirubin Neg (Negative) 10/22/16 Unknown Urine Urobilinogen < 2.0 mg/dL (<2.0) 10/22/16 Unknown Ur Leukocyte Esterase Neg (Negative) 10/22/16 Unknown Urine WBC (Auto) 1.0 /HPF (0.0-6.0) 10/22/16 Unknown Urine RBC (Auto) 26.0 /HPF (0.0-6.0) 10/22/16 Unknown Calcium Oxalate Crystal Few 10/22/16 Unknown Urine Mucus 2+ /HPF 10/22/16 Unknown Urine Opiates Screen Presumptive negative 10/22/16 11:30 Urine Methadone Screen Presumptive positive 10/22/16 11:30 Ur Barbiturates Screen Presumptive negative 10/22/16 11:30 Ur Phencyclidine Scrn Presumptive negative 10/22/16 11:30 Ur Amphetamines Screen Presumptive negative 10/22/16 11:30 U Benzodiazepines Scrn Presumptive negative 10/22/16 11:30 Urine Cocaine Screen Presumptive negative 10/22/16 11:30 U Marijuana (THC) Screen Presumptive negative 10/22/16 11:30 Drugs of Abuse Note Disclamer 10/22/16 11:30 Plasma/Serum Alcohol < 0.01 gm% (0-0.07) 10/22/16 12:27
[2016-10-27] MEDS: REMERON PO SCH (22:28)
[2016-10-28] MEDS: ATIVAN IV PRN (01:49)
[2016-10-28] MEDS: ATIVAN PO PRN (08:40)
[2016-10-28] MEDS: LOVENOX SUB-Q SCH (11:15)
[2016-10-28] MEDS: ASPIRIN PO SCH (11:15)
[2016-10-28 13:26] LABS: Anion Gap 18 mmol/L; Blood Urea Nitrogen 14 mg/dL (9-20); Calcium 8.4 mg/dL (8.4-10.2); Carbon Dioxide 24 mmol/L (22-30); Chloride 104.7 mmol/L (98-107); Glucose 74 mg/dL (75-100); Potassium 4.5 mmol/L (3.6-5.0); Sodium 142 mmol/L (137-145)
[2016-10-28 13:36] LABS: Hematocrit 44.4 % (35.5-45.6); Hemoglobin 14.4 gm/dl (11.8-15.2); Mean Corpuscular HGB Conc 33 % (32-34); Mean Corpuscular Hemoglobin 29 pg (28-32); Mean Corpuscular Volume 89 fl (84-94); Platelet Count 163 K/mm3 (140-440); Red Blood Count 4.97 M/mm3 (3.65-5.03); Red Cell Distribution Width 14.1 % (13.2-15.2); White Blood Count 5.5 K/mm3 (4.5-11.0)
[2016-10-28 19:06] VITALS: BP 117/71
--- NOTE | 2016-10-29 15:04 | Discharge Summary ---
Providers - Providers Date of Admission: 10/22/16 20:41 Date of discharge: 10/28/16 Attending physician: GIORGI MEZA 10/22/16 20:49 Consult to Mental Health [CONS] Routine Reason For Exam: Benzo dependency+ Suicidal ideation Place consult to:: Mental health Notified:: Miriam SOLOMON Phone number called:: [phone] Was contact made?: Yes If yes, spoke with:: Kristina Time called:: 09:21 Primary care physician: WET PAN OPERATOR Hospitalization Reason for admission: suicidal ideation; withdrawl seizure Condition: Stable Pertinent studies: CT head-normal ECHO- diastolic dysfunction Hospital course: Mr. Bravo presented to the ER with seizure and metabolic encephalopathy and which was though to be due to withdrawal from benzodiazepine; he also had suicidal ideation; he was evaluated by mental health and was accepted to inpatient psyche. condition at discharge-stable 31 minutes on discharge Disposition: DC/TX ANOTHER TYPE HEALTHCARE - Discharge Diagnoses (1) Benzodiazepine withdrawal Status: Acute Qualifiers: Complication of substance-induced condition: with unspecified complication Qualified Code(s): F13.239 - Sedative, hypnotic or anxiolytic dependence with withdrawal, unspecified (2) Drug withdrawal seizure Status: Acute Qualifiers: Complication of substance-induced condition: uncomplicated Qualified Code(s ): F19.230 - Other psychoactive substance dependence with withdrawal, uncomplicated (3) Psychiatric illness Status: Acute (4) Suicidal thoughts Status: Acute (5) Hypertension Status: Chronic Qualifiers: Hypertension type: essential hypertension Qualified Code(s): I10 - Essential (primary) hypertension Core Measure Documentation - Palliative Care Palliative Care/ Comfort Measures: Not Applicable - Core Measures Any of the following diagnoses?: none Exam - Constitutional Vitals: Temp Pulse Resp BP Pulse Ox 97.3 F L 80 18 117/71 97 10/28/16 16:00 10/28/16 16:00 10/28/16 16:00 10/28/16 16:00 10/28/16 16:00 General appearance: Present: no acute distress - EENT Eyes: Present: PERRL, EOM intact. Absent: scleral icterus, conjunctival injection ENT: hearing intact, clear oral mucosa, no oropharyngeal erythema, no poor dentition - Neck Neck: Present: supple, normal ROM. Absent: enlarged thyroid, masses or JVD Plan Follow up with: PRIMARY CARE, [Primary Care Provider] - 3-5 Days GRANT COTTON MD [Staff Physician] - 7 Days
== END 2016-10-28 20:00 | disposition other institution (70) | DRG 896 ==
LOC: ED 11:04 → EEVIPCON 20:41 → 4A 20:41
PROVIDERS: ADMIT Internal Medicine; ATTEND Hospitalist
DX: F13.239 Sedative, hypnotic or anxiolytic dependence with withdrawal, unspecified (principal); G93.41 Metabolic encephalopathy; F19.239 Other psychoactive substance dependence with withdrawal, unspecified; R45.851 Suicidal ideations; I25.2 Old myocardial infarction; I25.10 Atherosclerotic heart disease of native coronary artery without angina pectoris; I10 Essential (primary) hypertension; E78.5 Hyperlipidemia, unspecified; F41.9 Anxiety disorder, unspecified; F32.9 Major depressive disorder, single episode, unspecified; F17.210 Nicotine dependence, cigarettes, uncomplicated; R07.89 Other chest pain; E87.5 Hyperkalemia; I95.9 Hypotension, unspecified; Z91.041 Radiographic dye allergy status; Z91.013 Allergy to seafood; Z82.49 Family history of ischemic heart disease and other diseases of the circulatory system; Z98.890 Other specified postprocedural states; Z71.6 Tobacco abuse counseling; G40.89 Other seizures
CPT/HCPCS: 36415; 70450; 71010; 78452; 80048; 80053; 80307; 80320; 81001; 82040; 82140; 82150; 82550; 82553; 83735; 83880; 84100; 84439; 84443; 84484; 85025; 85027; 85610; 85730; 90732; 93005; 93010; 93017; 93306; 96365; 96375; A9502; G0480; J1630; J1650; J1885; J2060; J2405; J2785; J3475